=== PATIENT | female | born 1975 | race Caucasian/White ===

== ENCOUNTER 2016-03-25 16:10 | Emergency (ER) | payer SELFPAY ==
[2016-03-25] MEDS ORDERED: TDaP 0.5 ML VIAL IM.VACC ONE (18:15)
== END 2016-03-25 18:44 | disposition home or self-care (01) ==
LOC: ER 16:10
DX: S51.852A Open bite of left forearm, initial encounter (principal); W54.0XXA Bitten by dog, initial encounter; Z23 Encounter for immunization
CPT/HCPCS: 90471